=== PATIENT | female | born 1980 | race Caucasian/White ===

== ENCOUNTER 2020-05-12 13:53 | Emergency (ER) | payer BC ==
[~2020-05-12] VITALS: Ht 162.5 cm; Wt 94.3 kg
[2020-05-12 18:00] LABS: BASO % 0.3 % (0.0-1.0); EOS # 0.1 10*3/uL (0.0-0.4); EOS % 0.9 % (1.0-4.0); HEMATOCRIT 42.7 % (37.0-47.0); LYMPH # 3.3 10*3/uL (1.3-4.4); LYMPH % 43.4 % (27.0-41.0); MEAN CELL VOLUME 91.4 fl (81.0-99.0); MEAN CORPUSCULAR HGB 30.2 pg (27.0-31.0); MEAN PLATELET VOLUME 10.4 fl (9.6-12.3); MONO # 0.4 10*3/uL (0.1-1.0); NEUT # 3.8 10*3/uL (2.3-7.9); NEUT % 50.3 % (47.0-73.0); PLATELET COUNT AUTOMATED 229 10*3/uL (130-400); RED BLOOD COUNT 4.67 10*6/uL (4.10-5.10); RED CELL DISTRI WIDTH 12.8 % (0-14.5); WHITE BLOOD COUNT 7.6 10*3/uL (4.8-10.8)
[2020-05-12 18:14] LABS: ALBUMIN 3.2 gm/dl (3.1-4.5); ALKALINE PHOSPHATASE 87 U/L (45-117); BUN 10 mg/dl (7-24); CHLORIDE 109 mmol/L (98-107); CREATININE 0.68 mg/dL (0.55-1.02); POTASSIUM 3.6 mmol/L (3.5-5.1); SGOT/AST 11 IU/L (3-35); SGPT/ALT 31 U/L (12-78); SODIUM 142 mmol/L (136-145)
[2020-05-12 19:59] VITALS: BP 137/69
== END 2020-05-12 23:12 | disposition short-term general hospital (02) ==
LOC: ED 13:53
PROVIDERS: Nurse Practitioner Family
DX: R41.844 Frontal lobe and executive function deficit (principal); M54.2 Cervicalgia; M79.605 Pain in left leg; Z88.1 Allergy status to other antibiotic agents; Z87.891 Personal history of nicotine dependence

== ENCOUNTER 2023-11-20 15:16 | Emergency (ER) | payer OTHER ==
[~2023-11-20] VITALS: Ht 162.5 cm; Wt 108.0 kg
[2023-11-20 17:05] VITALS: BP 145/71
[2023-11-20 19:04] LABS: BASO % 0.4 % (0.0-1.0); EOS # 0.1 10*3/uL (0.0-0.4); EOS % 1.3 % (1.0-4.0); HEMATOCRIT 43.9 % (37.0-47.0); LYMPH % 30.4 % (27.0-41.0); MEAN CELL VOLUME 90.3 fl (81.0-99.0); MEAN CORPUSCULAR HGB 30.2 pg (27.0-31.0); MEAN CORPUSCULAR HGB CONC 33.5 g/dl (33.0-37.0); MEAN PLATELET VOLUME 10.6 fl (9.6-12.3); MONO # 0.7 10*3/uL (0.1-1.0); MONO % 6.8 % (3.0-9.0); NEUT # 6.1 10*3/uL (2.3-7.9); NEUT % 60.8 % (47.0-73.0); PLATELET COUNT AUTOMATED 263 10*3/uL (130-400); RED BLOOD COUNT 4.86 10*6/uL (4.10-5.10)
[2023-11-20 19:17] LABS: ACT PARTIAL THROMBO TIME 27.8 SECONDS (20.0-32.1)
[2023-11-20 19:26] LABS: ALKALINE PHOSPHATASE 113 U/L (46-116); CHLORIDE 105 mmol/L (98-107); POTASSIUM 3.4 mmol/L (3.4-5.1); SGPT/ALT 19 U/L (5-49); TOTAL PROTEIN 6.8 gm/dL (6.0-8.0)
[2023-11-20 19:28] LABS: BUN < 5 mg/dl (9-23)
[2023-11-20] MEDS ORDERED: methylPREDNISolone sod succ 125 MG VIAL IM ONE (20:50)
[2023-11-20] MEDS ORDERED: PREDNISONE20 M1 PO (20:59)
== END 2023-11-20 21:17 | disposition home or self-care (01) ==
LOC: ED 15:16
PROVIDERS: Internal Medicine
DX: R42 Dizziness and giddiness (principal); R51.9 Headache, unspecified; R53.1 Weakness; G35 Multiple sclerosis; Z88.1 Allergy status to other antibiotic agents